=== PATIENT | female | born 1985 | race Caucasian/White ===

== ENCOUNTER 2024-04-25 10:00 | Day surgery (SDC) | payer MEDICAID, SELFPAY ==
--- NOTE | 2024-04-22 06:16 | EKG_ITS ---
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
[2024-04-22 08:41] VITALS: BMI 34.8
[2024-04-22 09:46] LABS: Collection Type, Urine Clean Catch
[2024-04-22 11:49] LABS: Bilirubin,Urine Negative (Negative); Blood,Urine 1+ (Negative); Clarity,Urine Clear (Clear/Hazy); Color,Urine Lt-Yellow (Lt Yel-Yel); Glucose, Urine Negative (Negative); Ketones,Urine Negative (Negative); Leukocyte Esterase,Urine Negative (Negative); Nitrite,Urine Negative (Negative); Protein,Urine Negative (Neg - Trace); RBC,Urine 1 /hpf (0-3); Specific Gravity,Urine 1.018 (1.001-1.035); Squamous Epithelial Cell,Urine < 1 /hpf (0-5); Urobilinogen,Urine Negative mg/dL (0.0-1.0); WBC,Urine < 1 /hpf (0-5)
[2024-04-22 11:50] LABS: Basophils # (Auto) 0.1 Thou/mm3 (0.0-0.2); Basophils % (Auto) 1 % (0-2.5); Eosinophils # (Auto) 0.3 Thou/mm3 (0.0-0.5); Eosinophils % (Auto) 5 % (0-10); Hematocrit 36.1 % (36.0-46.0); Hemoglobin 11.6 g/dL (12.0-16.0); Immature Granulocytes % (Auto) 0 % (0-0); Immature Granulocytes Auto 0.01 Thou/mm3 (0.00-0.00); Lymphocytes # (Auto) 1.9 Thou/mm3 (1.0-4.8); Lymphocytes % (Auto) 35 % (10-50); Mean Corpuscular HGB Conc 32.1 g/dl (31.0-37.0); Mean Corpuscular Hemoglobin 25.4 pg (25.0-35.0); Mean Corpuscular Volume 79 fL (80-100); Monocytes # (Auto) 0.6 Thou/mm3 (0.0-0.8); Monocytes % (Auto) 11 % (0-12); Neutrophils # (Auto) 2.6 Thou/mm3 (1.8-7.7); Neutrophils % (Auto) 48 % (37-80); Nucleated Red Blood Cell % 0 /100 WBC (0); Platelet Count 355 Thou/mm3 (140-440); Red Blood Count 4.56 Miln/mm3 (4.00-5.20); White Blood Count 5.4 Thou/mm3 (3.6-11.0)
[2024-04-22 11:58] LABS: INR 0.9 (0.9-1.3); Partial Thromboplastin Time 28.1 Seconds (22.0-36.0); Prothrombin Time 10.3 Seconds (9.0-12.2)
[2024-04-22 12:13] LABS: Alanine Aminotransferase 14 U/L (10-49); Albumin, Serum 4.8 gm/dL (3.5-5.0); Albumin/Globulin Ratio 2.3 (1.2-2.2); Alkaline Phosphatase 97 U/L (46-116); Anion Gap 3 (7-16); Aspartate Amino Transferase 15 U/L (0-34); BUN/Creatinine Ratio 14 Ratio (12-20); Bilirubin,Total 0.2 mg/dL (0.3-1.2); Blood Urea Nitrogen 10 mg/dL (9-23); Calcium 9.6 mg/dL (8.3-10.6); Calcium (Corrected) 9.6 mg/dL (8.5-10.1); Chloride 107 mMol/L (98-107); Creatinine (Component) 0.7 mg/dL (0.6-1.3); Estimated Creatinine Clearance 108.9 mL/min (>60); Globulin 2.1 gm/dL (2.3-3.5); Glucose 91 mg/dL (74-106); Osmolality,Calculated 274 (275-295); Potassium 4.3 mMol/L (3.4-5.1); Sodium 138 mMol/L (136-145); Total Protein 6.9 gm/dL (5.7-8.2); eGFR > 60 See Note
--- NOTE | 2024-04-22 14:44 | SUR.PREOP ---
Pt notified to come in at 1300 on Thursday.
--- NOTE | 2024-04-22 15:14 | ESHP_ITS ---
HPI Date of Admission April 25, 2024 Chief Complaint Chief Complaint: Large hard mass in the right breast upper outer quadrant highly suspicious of malignancy. HPI This is a 38-year-old white female she was found to have a mass in the right breast and upper outer quadrant that has been growing in size it does produce dimpling this was biopsied with fine-needle aspiration biopsy and showed highly suspicious for malignancy. She is brought to the hospital for excision of the large mass in the right breast upper outer quadrant and rapid frozen section confirmation of malignancy and axillary lymph node dissection. The risk benefits and alternatives were discussed with the patient and informed consent is obtained. Past Medical History Past Medical History NEUROLOGIC: Negative Neurological Disorders, Cerebrovascular Accident, Transient Ischemic Attacks (TIA), Dementia, Alzheimer's Disease, Parkinson's Disease, Brain Tumor, Meningitis, Seizures, Epilepsy, Multiple Sclerosis, Cerebral Palsy, Amyotrophic Lateral Sclerosis (ALS/Jana Gehrig's), Guillain-[place] Syndrome, Spina Bifida, Paralysis, Peripheral Neuropathy, Roca's Palsy, Subdural Hematoma, Migraine, Head Trauma, Spinal Cord Injury or Traumatic Brain Injury CARDIAC: Positive Cardiac Disorders, Hypercholesterolemia and Hypertension; Negative Myocardial Infarction, Cardiac Arrhythmia, Atrial Fibrillation, Angina, Heart Murmur, Coronary Artery Disease, Atherosclerotic Heart Disease, Peripheral Vascular Disease, Aneurysm, Congestive Heart Failure, Congenital Heart Disease, Valvular Heart Disease, Rheumatic Fever, Cardiomyopathy, Edema, Pericarditis, Cellulitis, Deep Vein Thrombosis, Hypotension or Varicose Veins RESPIRATORY: Negative Respiratory Disorders, Chronic Obstructive Pulmonary Disease (COPD), Asthma, Bronchitis, Emphysema, Pneumonia, Pulmonary Fibrosis, Cystic Fibrosis, Tuberculosis, Pulmonary Embolism, Pulmonary Edema or Sleep Apnea GASTROINTESTINAL: Positive Gastrointestinal Disorders, Hemorrhoids and Obesity; Negative Hepatitis, Cirrhosis, Pancreatitis, Celiac Disease, Gall Bladder Disease, Gastrointestinal Bleed, Esophageal Varices, Olivares's Esophagus, Colitis, Ulcerative Colitis, Diverticulitis, Diverticulosis, Ulcer, Colorectal Cancer, Irritable Bowel, Crohn's Disease, Obstructive Bowel, Hiatal Hernia or Gastroesophageal Reflux Disease GENITOURINARY: Negative Genitourinary Disorders, Renal Disease, Kidney Stones, Polycystic Kidney Disease, Neurogenic Bladder, Inguinal Hernia, Dialysis, Prostate Cancer or Benign Prostatic Hyperplasia REPRODUCTIVE: Positive Breast Cancer (Right) and Previous Pregnancies; Negative Endometriosis, Genital Herpes, Gonorrhea, Pelvic Inflammatory Disease, Syphilis, Testicular Cancer or Uterine Prolapse MUSCULOSKELETAL: Positive Musculoskeletal Disorders; Negative Muscular Dystrophy, Myasthenia Gravis, Marfan's Syndrome, Bone Cancer, Arthritis, Rheumatoid Arthritis, Osteoporosis, Degenerative Disk Disease, Gout, Scoliosis, Carpal Tunnel Syndrome, Fibromyalgia, Fractures, Degenerative Joint Disease, Osteomyelitis or Poliovirus ENT: Negative History of ENT Problems, Cataracts, Glaucoma, Blind, Retinal Detac hment, Macular Degeneration, Ear Infection, Deafness, Head Trauma or Eye Prosthesis ENDOCRINE: Negative Endocrine Disorders, Diabetes Mellitus Type 1, Diabetes Mellitus Type 2, Hypoglycemia, [place]'s Syndrome, [place]'s Disease, Hyperthyroidism, Hypothyroidism, Parathyroid Disease, Pituitary Disease, Systemic Lupus Erythematosus, Syndrome of Inappropriate Antidiuretic Hormone (SIADH), Adrenal Disease or Graves' Disease HEMATOLOGIC: Negative Blood Disorders, Anemia, Leukemia, Hemophilia, Thalassemia, Sickle Cell Disease or Clotting Problems PSYCHO/SOCIAL: Positive Depression and Anxiety; Negative Psychiatric Problems, Schizophrenia, Recreational Drug Use, Bipolar Disorder, Behavior Problems, Self-Mutilation, Attention Deficit Disorder, Attention Deficit Hyperactivity Disorder, Depression, Post Traumatic Stress Disorder or Eating Disorder OTHER HISTORY: Positive Hospitalization (uterus infection), Chicken Pox, Cancer and Breast Cancer (Right); Negative Autoimmune Disease, Down Syndrome, Autism, Developmental Delay, Shingles, Falls, Blood Transfusions, Blood Transfusion Reaction, Anesthesia Reactions, Organ Transplant, Chemotherapy, Radiation Therapy, Hyperbaric Therapy, MRSA, VRSA, Vancomycin-Resistant Enterococci, Human Immunodeficiency Virus (HIV), Measles, Mumps, Rubella ([place] Measles), Pertussis, Clostridium Difficile, Cervical Cancer, Colorectal Cancer, Lung Cancer, Ovarian Cancer, Prostate Cancer or Testicular Cancer Family History FAMILY HISTORY: Positive Family Cardiac Disorders, Family Endocrine Disorders, Family Cancer and Family Surgery; Negative Family Psychiatric Problems, Family Respiratory Disorders, Family Gastrointestinal Problems, Family Genitourinary Problems, Family Reproductive Disorders, Family Musculoskeletal Disorders or Family Anesthesia Reaction Surgical History SURGICAL: Positive Tubal Ligation and Section; Negative Cardiac Surgery, Open Heart Surgery, Coronary Artery Bypass Graft, Valve Replacement, Vascular Surgery, Coronary Stent, Cardiac Catheterization, Pacemaker, Angiogram, Auto Implanted Cardiovert Defib, Carotid Endarterectomy, Endocrine Surgery, Thyroidectomy, Ear Surgery, Tympanostomy Tube, Eye Surgery, Nose Surgery, Oral Surgery, Tonsillectomy, Adenoidectomy, Cochlear Implant, Corneal Transplant, Throat Surgery, Abdominal Surgery, Tracheostomy, Gastric Bypass Surgery, Gastrostomy, Bowel Surgery, Nephrectomy, Transurethral Resection, Joint Replacement, Amputation, Open Reduction Internal Fixation, Arthroscopy, Neurologic Surgery, Brain Shunt, Mastectomy, Lumpectomy, Hysterectomy, Vasectomy or Organ Transplant Social History SMOKING STATUS: Never smoker SECOND HAND EXPOSURE: No Travel History EBOLA RISK: No Meds Home Medications and Allergies Home Medications ?Medication ?Instructions ?Recorded ?Confirmed ?Type atorvastatin 10 mg tablet (Lipitor) 10 mg PO QDAY 04/22/24 04/22/24 History dextroamphetamine-amphetamine 20 20 mg PO QDAY 04/22/24 04/22/24 History mg tablet (Adderall) fluoxetine 40 mg capsule (Prozac) 40 mg PO QDAY 04/22/24 04/22/24 History losartan 25 mg tablet 25 mg PO DAILY 04/22/24 04/22/24 History Allergies Allergy/AdvReac Type Severity Reaction Status Date / Time No Known Allergies Allergy Verified 04/22/24 08:38 Exam Constitutional Constitutional: no acute distress Routine HEENT Exam Head: Present normocephalic Eye: Present EOMI and PERRL ENT: Present mucous membranes moist Routine Neck Exam Neck: Present supple and trachea midline Routine Chest/Breast/Axilla Exam Chest wall: Absent tenderness or mass Breast: Present mass (He had a large mass in the right breast upper outer quadrant with the dimpling. There is no retraction of the nipple. There is no drainage from the nipple.) Routine Respiratory Exam Respiratory: Present chest non-tender, lungs clear, normal breath sounds and no resp distress; Absent respiratory distress Routine Cardiovascular Exam Cardiovascular: Present RRR Routine Abdominal Exam Abdominal: Present soft and normoactive bowel sounds Routine Extremities Exam Extremities: Present full ROM Routine Skin Exam Skin: Present intact, dry and warm Routine Neurological Exam Neurological: Present alert, oriented X3 and CN II-XII intact Routine Psychiatric Exam Psychiatric: Present normal affect and normal thought process Results Results: Laboratory Laboratory results: results reviewed Assessment & Plan Problem List (1) Mass of breast, right: Qualifiers: Breast mass location: upper outer quadrant Qualified Code(s): N63.11 - Unspecified lump in the right breast, upper outer quadrant Status: Acute (2) Neoplasm of uncertain behavior of right breast: Status: Acute Plan Ultrasound-guided mapping and then excision of the large mass in the right breast upper outer quadrant and rapid frozen section with confirmation of malignancy she will undergo axillary lymph node dissection. Risk benefits and alternatives were discussed with the patient and informed consent is obtained. Quality Measures Quality Measures none
[2024-04-25] VITALS (11 sets, daily range): BP systolic 133–169; BP diastolic 78–103; PULSE 78–107; RESP 12–21; TEMP 36.1–36.3; O2SAT 95–100; BMI 34.2
--- NOTE | 2024-04-25 17:45 | SUR.PHASEI ---
pt received from OR in recovery bay 4. pt thrashing in bed stating its hot , pt diaphoretic. blankets taken off pt, cooling fan placed on pt. breathing unlabored on 4l nc. v/s stable. pt dressing to right breast cdi, two crystal drains in place. report received from Dr. Collazo and Jayce BARGER.
--- NOTE | 2024-04-25 18:10 | ESOP_ITS ---
Date of Procedure 04/25/24 Pre Op Diagnosis Right breast mass possible cancer Post Op Diagnosis Right breast cancer upper outer quadrant size 18 cm x 15 cm x 12 cm. Procedure Right breast partial mastectomy rapid frozen section and right axillary lymph node dissection. On April 25, 2024 Findings This patient has very large breast and she had a large mass in the right breast upper outer quadrant. This was localized with the ultrasound examination and it was resected. Rapid frozen section was carried out by Dr. Cueto and showed right breast cancer. The axillary examination showed she has a several enlarged lymph glands in the axilla. Procedure Description This patient was interviewed in the preop area and the procedure was discussed with the patient. Risk benefits and alternatives were discussed with the patient in great detail. She is scheduled for a right breast partial mastectomy rapid frozen section and possible lymph node dissection. The breast was marked for side and site. The patient was taken to the operating room and laid supine on the operating table. General anesthesia was administered in the satisfactory manner. Right neck shoulder breast chest wall and abdomen are prepped and draped in usual manner. Ultrasound examination is carried out to identify the margins of the mass to be marked on the surface. The mass is palpable also. Curvilinear transverse incision is made at about 9 o'clock position. This was deepened through the layers of skin and subcutaneous tissue and the mass is identified. The upper and lower flaps are developed at the level of the breast tissue and superficial fascia. Dissection is carried out circumferentially. The inferior flap is also developed in a similar manner. Medially has the tumor extended beyond the nipple areolar region. Laterally it extended beyond the lateral border of the pectoralis major muscle. The entire mass is removed in this manner. Hemostasis is achieved. The mass is oriented anatomically for the pathology examination. Dr. Cueto examined the excised mass and did rapid frozen section pathologic examination and found out that it was invasive breast cancer it could be mixed ductal and lobular cancer. The final pathology result is pending at this time. After this I proceeded to irrigate the excision cavity and examined that hemostasis was achieved. A separate stab incision I placed a 19 [place] round Juan-Horner into the partial mastectomy cavity. I sutured the drain to the skin using 2-0 nylon suture. The subcutaneous tissue was approximated by interrupted 3-0 Vicryl stitches and skin is approximated by calista. With this information I proceeded to do the axillary dissection. I made an incision at the base of the axilla and deepened through the layers of skin and subcutaneous tissue I identified the lateral border of the pectoralis major muscle the space between the pectoralis minor and major did not have any lymph nodes. Dissection was carried out underneath the pectoralis minor muscle. The axillary vein is identified and dissection was kept below the axillary vein. The pectoralis muscles were lifted up and the dissection was carried out in the apex of the axilla and all tissue was removed from the lateral leads the dissection margin was anterior border of the latissimus dorsi. Posteriorly nerve to serratus anterior and nerve to latissimus dorsi were identified and protected. After removal of the lymph node bearing tissue the apical region was marked with a silk tie. Operative field was thoroughly irrigated with saline solution and hemostasis was achieved. After that I proceeded to place a 19 [place] round Juan-Horner drain into the axilla by separate stab incision. This was sutured to the skin using 2-0 nylon stitches. I closed the subcutaneous tissue with 3-0 Vicryl interrupted sutures and skin by calista. Complications none patient tolerated the procedure very well. Anesthesia GETA Drains 19 [place] round Juan-Horner x 2 Implants None. Pathology / specimen Other (Right breast partial mastectomy rapid frozen section and right axillary lymph nodes) Estimated Blood Loss 25 Condition Stable Disposition PACU Surgeon Preston Merino MD Surgical Staff Operation Date: 04/25/24 15:00 Case Staff Anesthesiologist: Victorino Donnelly RN First Assistant: Leticia Gan RN police aide Yulisa surgical device sales representative
[2024-04-25] MEDS: KETOROLAC INJ 30 MG/ML VIAL IVP (18:56)
--- NOTE | 2024-04-25 19:06 | SUR.PHASEII ---
pt able to tolerate oral fluids without difficulty swallowing or nausea/vomiting.
--- NOTE | 2024-04-25 19:55 | SUR.PHASEII ---
pt awake and alert, breathing unlabored on room air. v/s stable. pt dressing to right breast cdi, abd binder and crystal drains in place. pt able to ambulate to wheelchair with steady gait. d/c instructions given with Julio in room, all questions answered. pt d/c via wheelchair with all belongings.
--- NOTE | 2024-04-28 12:59 | ESPR_ITS ---
Documentation for date of: 04/28/24 POST ANESTHESIA NOTE: Patient had GETA for R breast surgery started by my colleague and then taken o binh and completed by me on 04/25/24. I just called and spoke with her on the phone and she denied any problems from anesthesia and said Everything is good. Martin Collazo MD Anesthesia Progress Note Progress Note Most recent Vital Signs: Last Vital Signs Temp 97.4 F 04/25/24 19:30 Pulse 80 04/25/24 19:30 Resp 18 04/25/24 19:30 BP 156/101 H 04/25/24 19:30 Pulse Ox 97 04/25/24 19:30 O2 Flow Rate 2 04/25/24 18:30
== END 2024-04-25 19:55 | disposition home or self-care (01) ==
PROVIDERS: PCP Internal Medicine; Referring Provider Specialist; Visit Provider Specialist
PROC: (CPT 19302; principal; 2024-04-25 15:00)
DX: C50.411 Malignant neoplasm of upper-outer quadrant of right female breast (principal); E03.9 Hypothyroidism, unspecified; E78.00 Pure hypercholesterolemia, unspecified; E66.9 Obesity, unspecified; Z01.810 Encounter for preprocedural cardiovascular examination; C77.3 Secondary and unspecified malignant neoplasm of axilla and upper limb lymph nodes; I10 Essential (primary) hypertension; Z87.19 Personal history of other diseases of the digestive system; Z68.34 Body mass index [BMI] 34.0-34.9, adult
CPT/HCPCS: 19302; 36415; 80053; 81001; 85025; 85610; 85730; 93005; A4217; A4649; J0131; J0694; J1100; J1885; J2250; J2405; J2704; J3010; J3490

== ENCOUNTER 2024-05-05 08:25 | Day surgery (SDC) | payer MEDICAID, SELFPAY ==
--- NOTE | 2024-05-04 14:07 | PD.SURHP ---
HPI Date of Admission May 05, 2024 Chief Complaint Chief Complaint: Lobular carcinoma of the right breast HPI This patient had a resection of the right breast and very large tumor on April 25, 2024. Rapid frozen section was done at the time it was not clear about the margin. On the final examination there is a positive margin breach on the inferior side and posterior side of the excision. Therefore the patient is brought back to the operating room to resect the inferior and posterior aspect of the margin. Rapid frozen section will be obtained to see if there is any involvement in the new margin. Risk benefits and alternatives were discussed with the patient and informed consent is obtained. Past Medical History Past Medical History NEUROLOGIC: Negative Neurological Disorders, Cerebrovascular Accident, Transient Ischemic Attacks (TIA), Dementia, Alzheimer's Disease, Parkinson's Disease, Brain Tumor, Meningitis, Seizures, Epilepsy, Multiple Sclerosis, Cerebral Palsy, Amyotrophic Lateral Sclerosis (ALS/Jana Gehrig's), Guillain-[place] Syndrome, Spina Bifida, Paralysis, Peripheral Neuropathy, Roca's Palsy, Subdural Hematoma, Migraine, Head Trauma, Spinal Cord Injury or Traumatic Brain Injury CARDIAC: Positive Cardiac Disorders, Hypercholesterolemia and Hypertension; Negative Myocardial Infarction, Cardiac Arrhythmia, Atrial Fibrillation, Angina, Heart Murmur, Coronary Artery Disease, Atherosclerotic Heart Disease, Peripheral Vascular Disease, Aneurysm, Congestive Heart Failure, Congenital Heart Disease, Valvular Heart Disease, Rheumatic Fever, Cardiomyopathy, Edema, Pericarditis, Cellulitis, Deep Vein Thrombosis, Hypotension or Varicose Veins RESPIRATORY: Negative Chronic Obstructive Pulmonary Disease (COPD), Asthma, Bronchitis, Emphysema, Pneumonia, Pulmonary Fibrosis, Cystic Fibrosis, Tuberculosis, Pulmonary Embolism, Pulmonary Edema or Sleep Apnea GASTROINTESTINAL: Positive Gastrointestinal Disorders, Hemorrhoids and Obesity; Negative Hepatitis, Cirrhosis, Pancreatitis, Celiac Disease, Gall Bladder Disease, Gastrointestinal Bleed, Esophageal Varices, Olivares's Esophagus, Colitis, Ulcerative Colitis, Diverticulitis, Diverticulosis, Ulcer, Colorectal Cancer, Irritable Bowel, Crohn's Disease, Obstructive Bowel, Hiatal Hernia or Gastroesophageal Reflux Disease GENITOURINARY: Negative Genitourinary Disorders, Renal Disease, Kidney Stones, Polycystic Kidney Disease, Neurogenic Bladder, Inguinal Hernia, Dialysis, Prostate Cancer or Benign Prostatic Hyperplasia REPRODUCTIVE: Positive Breast Cancer (Right) and Previous Pregnancies; Negative Endometriosis, Genital Herpes, Gonorrhea, Pelvic Inflammatory Disease, Syphilis, Testicular Cancer or Uterine Prolapse MUSCULOSKELETAL: Positive Musculoskeletal Disorders; Negative Muscular Dystrophy, Myasthenia Gravis, Marfan's Syndrome, Bone Cancer, Arthritis, Rheumatoid Arthritis, Osteoporosis, Degenerative Disk Disease, Gout, Scoliosis, Carpal Tunnel Syndrome, Fibromyalgia, Fractures, Degenerative Joint Disease, Osteomyelitis or Poliovirus ENT: Negative Cataracts, Glaucoma, Blind, Retinal Detachment, Macular Degeneration, Ear Infection, Deafness, Head Trauma or Eye Prosthesis ENDOCRINE: Negative Endocrine Disorders, Diabetes Mellitus Type 1, Diabetes Mellitus Type 2, Hypoglycemia, [place]'s Syndrome, [place]'s Disease, Hyperthyroidism, Hypothyroidism, Parathyroid Disease, Pituitary Disease, Systemic Lupus Erythematosus, Syndrome of Inappropriate Antidiuretic Hormone (SIADH), Adrenal Disease or Graves' Disease HEMATOLOGIC: Negative Blood Disorders, Anemia, Leukemia, Hemophilia, Thalassemia, Sickle Cell Disease or Clotting Problems PSYCHO/SOCIAL: Positive Depression and Anxiety; Negative Psychiatric Problems, Schizophrenia, Recreational Drug Use, Bipolar Disorder, Behavior Problems, Self-Mutilation, Attention Deficit Disorder, Attention Deficit Hyperactivity Disorder, Depression, Post Traumatic Stress Disorder or Eating Disorder OTHER HISTORY: Positive Hospitalization (uterus infection), Chicken Pox, Cancer and Breast Cancer (Right); Negative Autoimmune Disease, Down Syndrome, Autism, Developmental Delay, Shingles, Falls, Blood Transfusions, Blood Transfusion Reaction, Anesthesia Reactions, Organ Transplant, Chemotherapy, Radiation Therapy, Hyperbaric Therapy, MRSA, VRSA, Vancomycin-Resistant Enterococci, Human Immunodeficiency Virus (HIV), Measles, Mumps, Rubella ([place] Citizen Measles), Pertussis, Clostridium Difficile, Cervical Cancer, Colorectal Cancer, Lung Cancer, Ovarian Cancer, Prostate Cancer or Testicular Cancer Family History FAMILY HISTORY: Positive Family Cardiac Disorders, Family Cancer and Family Surgery; Negative Family Psychiatric Problems, Family Respiratory Disorders, Family Gastrointestinal Problems or Family Anesthesia Reaction Surgical History SURGICAL: Positive Tubal Ligation and Section; Negative Cardiac Surgery, Open Heart Surgery, Coronary Artery Bypass Graft, Valve Replacement, Vascular Surgery, Coronary Stent, Cardiac Catheterization, Pacemaker, Angiogram, Auto Implanted Cardiovert Defib, Carotid Endarterectomy, Endocrine Surgery, Thyroidectomy, Ear Surgery, Tympanostomy Tube, Eye Surgery, Nose Surgery, Oral Surgery, Tonsillectomy, Adenoidectomy, Cochlear Implant, Corneal Transplant, Throat Surgery, Abdominal Surgery, Tracheostomy, Gastric Bypass Surgery, Gastrostomy, Bowel Surgery, Nephrectomy, Transurethral Resection, Joint Replacement, Amputation, Open Reduction Internal Fixation, Arthroscopy, Neurologic Surgery, Brain Shunt, Mastectomy, Lumpectomy, Hysterectomy, Vasectomy or Organ Transplant Social History SMOKING STATUS: Never smoker SECOND HAND EXPOSURE: No Meds Home Medications and Allergies Home Medications ?Medication ?Instructions ?Recorded ?Confirmed ?Type atorvastatin 10 mg tablet (Lipitor) 10 mg PO QDAY 04/22/24 04/22/24 History dextroamphetamine-amphetamine 20 20 mg PO QDAY 04/22/24 04/22/24 History mg tablet (Adderall) fluoxetine 40 mg capsule (Prozac) 40 mg PO QDAY 04/22/24 04/22/24 History losartan 25 mg tablet 25 mg PO DAILY 04/22/24 04/22/24 History Allergies Allergy/AdvReac Type Severity Reaction Status Date / Time No Known Allergies Allergy Verified 04/22/24 08:38 Exam Constitutional Constitutional: no acute distress Routine HEENT Exam Head: Present normocephalic Eye: Present EOMI and PERRL ENT: Present mucous membranes moist Routine Neck Exam Neck: Present supple and trachea midline Routine Chest/Breast/Axilla Exam Chest wall: Absent tenderness or mass Breast: Present mass (This patient had a large mass excised from the right breast there is a healing incision scar without infection she also has an incision in the axilla for axillary lymph node removal.) Routine Respiratory Exam Respiratory: Present chest non-tender, lungs clear, normal breath sounds and no resp distress; Absent respiratory distress Routine Cardiovascular Exam Cardiovascular: Present RRR Routine Abdominal Exam Abdominal: Present soft and normoactive bowel sounds Routine Extremities Exam Extremities: Present full ROM Routine Skin Exam Skin: Present intact, dry and warm Routine Neurological Exam Neurological: Present alert, oriented X3 and CN II-XII intact Routine Psychiatric Exam Psychiatric: Present normal affect and normal thought process Results Results: Laboratory Laboratory Narrative: This patient had excision of the large mass in the right breast on April 25, 2024 this turned out to be invasive lobular carcinoma of the breast. She also had positive metastatic lymph glands under the arm. Assessment & Plan Problem List (1) Lobular carcinoma of right breast: Status: Acute (2) Regional lymph node metastasis present: Status: Acute Plan Reresection partial mastectomy to clear the margin on the inferior side as well as on the posterior side. Risk benefits and alternatives were discussed with the patient and informed consent is obtained.2 Quality Measures Quality Measures VTE prophylaxis
[2024-05-05] VITALS (7 sets, daily range): BP systolic 117–156; BP diastolic 59–102; PULSE 81–112; RESP 13–19; TEMP 36.2–36.5; O2SAT 98–100; BMI 33.6; BMI 33.8
--- NOTE | 2024-05-05 08:24 | SUR.PREOP ---
Pt has partial mastectomy right breast on Apr, incision with steri strips under her right axilla, Dr Merino and Dr Vale gay to use same labs from Apr 22
[2024-05-05] MEDS: RINGERS LACTATED 1000 ML 1,000 ML 60 ML IV (09:16)
--- NOTE | 2024-05-05 14:00 | SUR.PHASEI ---
pt received from OR in recovery bay 4. pt obtunded, breathing unlabored on room air. v/s stable. pt dressing to right breast cdi. crystal drain in place. report received from Dr. Shafer and Jayce BARGER.
--- NOTE | 2024-05-05 14:22 | ESOP_ITS ---
Date of Procedure 05/05/24 Pre Op Diagnosis Microscopic residual cancer on the margin of resection right breast status post partial mastectomy for lobular carcinoma. Post Op Diagnosis Same. Procedure Partial mastectomy right breast for residual cancer right breast. With rapid frozen section margin control. On May 05, 2024 Findings There is an excision cavity in the right breast there is no palpable cancer from the inside of the cavity. The inferior margin and posterior margin areas were all removed including the superior and medial and lateral margin the margin cavity was painted with methylene blue from the inside. This was oriented for the pathologist and given it to the pathologist and I explained to the pathologist which part of the tissue was questionably involved. Then this was examined and rapid frozen section was carried out and showed there was no residual cancer. The final margin was clear. Procedure Description The patient is interviewed in the preop area and site and side were marked. The procedure was discussed in great detail with the patient and the family member. All questions were answered and informed consent is obtained. Patient was then taken to the operating room and patient is positioned supine on the operating table. The general anesthesia was administered in a satisfactory manner. Patient is prepped and draped in usual manner. I opened the old incision and examined the excision cavity there is no palpable mass from inside the excision cavity. There was small amount of serosanguineous fluid and that was aspirated. Then I took methylene blue and painted the excision cavity surface from the inside. I allowed that the methylene blue to set in on the tissue is blue-color. After that I excised the entire wall of the previous excision cavity without a break. After removal of the entire excision cavity I oriented that for the pathologist as what was inferior margin what was posterior margin what was medial margin and what was lateral margin. I took the specimen myself to the pathologist to explain the localization. This was examined by the pathologist and showed that there was no close tumor and the final margin was clear. After this I proceeded back to the operating room and again scrubbed and the cavity was irrigated with saline solution and hemostasis was again achieved. This is a large cavity. By separate stab incision a left 10 Zimbabwean flat Juan-Horner into the excision cavity and sutured to the skin using 2-0 nylon interrupted suture. The breast tissue and subcutaneous tissues approximated by 4-0 Vicryl interrupted stitches. Skin is approximated by calista. Patient tolerated the procedure very well complications none. 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
--- NOTE | 2024-05-05 14:30 | SUR.PHASEI ---
pt able to tolerate oral fluids without difficulty swallowing or nausea/vomiting.
--- NOTE | 2024-05-05 15:00 | SUR.PHASEII ---
pt awake and alert, breathing unlabored on room air. v/s stable. pt dressing to right breast cdi, abd binder in place, crystal drain in place. pt able to ambulate to wheelchair with steady gait. d/c instructions given with Julio in room, all questions answered. pt d/c via wheelchair with all belongings.
== END 2024-05-05 15:00 | disposition home or self-care (01) ==
PROVIDERS: PCP Internal Medicine; Referring Provider Specialist; Visit Provider Specialist
PROC: (CPT 19302; principal; 2024-05-05 12:00)
DX: D24.1 Benign neoplasm of right breast (principal); E66.9 Obesity, unspecified; E78.00 Pure hypercholesterolemia, unspecified
CPT/HCPCS: 19302; 80053; 81001; 85025; 85610; 85730; A4217; A4649; J0461; J0690; J1100; J1885; J2250; J2371; J2405; J2704; J3010; J7120; Q9968

== ENCOUNTER → 2024-05-09 | Outpatient (CLI) | payer MEDICAID, SELFPAY ==
--- NOTE | 2024-05-09 10:37 | XR_ITS ---
Examination: PA lateral chest 2 views TECHNIQUE: Upright PA lateral chest 2 views Exam date and time: May 09, 2024 1052 hours INDICATIONS: Chronic coughing FINDINGS: Linear opacity right breast with calista Right axillary surgical clips Normal heart size No pneumonia or pulmonary edema IMPRESSION: No pneumonia or pulmonary edema
== END | disposition home or self-care (01) ==
PROVIDERS: PCP Internal Medicine; Referring Provider Internal Medicine; Visit Provider Internal Medicine
DX: R05.3 Chronic cough (principal)
CPT/HCPCS: 71046

== ENCOUNTER 2024-06-01 08:58 | Outpatient (RCR) | payer MEDICAID, SELFPAY ==
--- NOTE | 2024-06-01 10:29 | CTCCONSULT_ITS ---
Patient: NGHIA SUTHERLAND : 1985 MR#: [id number] Page 2 of 2 CONSULTATION NOTE DATE OF CONSULTATION: 06/01/2024 NAME: NGHIA SUTHERLAND ACCOUNT: [id number] : 1985 AGE: 38 REFERRING PHYSICIAN: Viktor Dutton MD PRIMARY PHYSICIAN: Lyndon Vidal MD REASON FOR VISIT: New diagnosis of breast cancer ONCOLOGY HISTORY: DIAGNOSIS: Malignant neoplasm of upper-inner quadrant of right female breast [ICD10] C50.211 DATE OF DIAGNOSIS: 04/13/2024 STAGE/TNM: IIIA T3 N1 M0 TREATMENT HISTORY: Care?Plan Start?Date Cycle Day Intent AC?4?cy?DD?Taxol?wkly?12?wks 06/01/2024 1 7 Curative?(adjuvant) HISTORY OF PRESENT ILLNESS: 38-year-old female who is here to establish care. Patient was diagnosed with right breast cancer aft er she palpated about golf size mass in July. Patient thinks that mass grew very rapidly. She also noticed skin changes and orange peel like skin. Patient was seen by surgeon who did lumpectomy. Re section of the margins was attempted again as initial margins were positive. Repeat surgery for eliud ins was found to be negative Patient otherwise healed well and here to discuss further level of care. 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 AdderalL - 20 mg 1 tab In the morning 2. fexofenadine - 180 mg 1 tab Daily 3. fluoxetine - 40 mg 1 Capsule Daily 4. Lipitor - 10 mg 0.5 tab Daily 5. losartan - 25 mg 1 tab Daily Medications Last Reconciled by Daisy Sebastian MD on 06/01/2024 ALLERGIES: No Known Allergies REVIEW OF SYSTEMS: A complete 14-point review of systems was performed and is negative except as noted in interval histo ry. PHYSICAL EXAMINATION: VITAL SIGNS: Temperature?99, B/P?150/101, Height?62?inches, Oxygen?Saturation?97% Weight?190?lbs PAIN: 0 - No pain ECOG Performance Status: 0 - Asymptomatic and fully active GENERAL APPEARANCE: Appears well, in no apparent distress, appropriately interactive. HEENT: Normocephalic, no temporal wasting, normal conjunctiva, no scleral icterus, normal hearing, li ps without lesions, neck normal range of motion. CARDIOVASCULAR: Not assessed. PULMONARY: Normal respiratory effort, no respiratory distress or use of accessory muscles, speaking i n full sentences, no tachypnea. EXTREMITIES: No pedal edema or cyanosis. SKIN: Normal skin appearance. NEUROLOGIC: Alert and oriented x4. PSHYCHIATRIC: Appropriate affect, mood normal, behavior normal, intact thought and speech. LABORATORY DATA: I have personally reviewed and interpreted each of Ms. 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 but I cannot confir m now Discussed starting chemotherapy with AC plus Taxol Patient will also need NT endocrine therapy with abemaciclib Will get MUGA scan Port catheter Discussed effects and benefit of chemotherapy along with side effects and patient verbally consented for chemotherapy To confirm staging will need PET CT scan and brain MRI to make sure patient do not have metastatic di sease PET CT scan to evaluate for any metastatic disease MRI brain to evaluate brain mets Port catheter MUGA scan CBC CMP RETURN TO CLINIC: Before the first cycle of chemotherapy in 4 to 6 weeks BILLING AND COMPLIANCE: I reviewed external records from providers outside my specialty as summarized above. I spent a total of 50 minutes on this patient?s care on the day of their visit excluding time spent related to any bi lled procedures. This time includes time spent with the patient as well as time spent documenting in the medical record, reviewing patients records and tests, obtaining history, placing orders, communi cating with other healthcare professionals, counseling the patient, family or caregiver, and/or care coordination for the diagnoses above. Electronically Signed by: Lyndon Vidal MD T: 10:27 AM CC: PCP: Lyndon Vidal Referring: Viktor Dutton This document was completed utilizing speech recognition software. Grammatical errors, random word in sertions, pronoun errors, and incomplete sentences are an occasional consequence of this system due t o software limitations, ambient noise, and hardware issues. Any formal questions or concerns about th e content, text or information contained within the body of this dictation should be directly address ed to the provider for clarification.
== END 2024-06-10 23:59 | disposition home or self-care (01) ==
LOC: SCTC 08:58
PROVIDERS: PCP Internal Medicine; Referring Provider Psychiatry & Neurology Neurology; Visit Provider Internal Medicine Hematology & Oncology
DX: C50.411 Malignant neoplasm of upper-outer quadrant of right female breast (principal); Z17.0 Estrogen receptor positive status [ER+]; Z17.21 Progesterone receptor positive status; Z17.32 Human epidermal growth factor receptor 2 negative status; Z90.11 Acquired absence of right breast and nipple
CPT/HCPCS: 99213; G0463

== ENCOUNTER → 2024-06-09 | Outpatient (CLI) | payer MEDICAID, SELFPAY ==
--- NOTE | 2024-06-09 10:15 | XR_ITS ---
EXAMINATION: PET/CT FUSION SKULL TO THIGH EXAM DATE AND TIME: June 09, 2024 1047 hours INDICATIONS: Diagnosis breast cancer, staging prior to treatment CTDI:vol (mGy) 6.24 DLP: (mGycm) 569.84 PROCEDURE: 15.14 mCi FDG was administered intravenously To allow for distribution and uptake of radiotracer, the patient was allowed to rest quietly in a shielded room. Imaging was performed on an integrated 16-slice PET/CT scanner, with scanning from the skull base to the mid thigh. Serum blood glucose at the time of the injection was measured 91 mg/dL. CT scanning was performed without oral or intravenous contrast material. FINDINGS: Head and Neck: There is no tati hypermetabolism in the neck. The visualized portions of the brain are normal in appearance on CT. Chest: Weakly hypermetabolic activity in the right axilla about surgical clips which is probably postsurgical Probable seroma in the right lateral breast 6 cm image 93 Hypermetabolic skin right breast Abdomen and Pelvis: There is no tati hypermetabolism in retroperitoneal or pelvic chains. The spleen is normal in size and FDG avidity. Musculoskeletal: Marrow uptake is within normal range. IMPRESSION: No findings of metastatic disease
== END | disposition home or self-care (01) ==
LOC: CDIM 09:58
PROVIDERS: PCP Internal Medicine; Referring Provider Internal Medicine Hematology & Oncology; Visit Provider Internal Medicine Hematology & Oncology
DX: C50.211 Malignant neoplasm of upper-inner quadrant of right female breast (principal)
CPT/HCPCS: 78815; A9552

== ENCOUNTER → 2024-06-11 | Outpatient (CLI) | payer MEDICAID, SELFPAY ==
--- NOTE | 2024-06-11 07:45 | XR_ITS ---
Examination: MRI of brain without intravenous contrast. MRI brain with intravenous contrast. Date and time of exam:June 11, 2024 2018 hrs. Indications: Diagnosis malignant neoplasm upper inner quadrant right female breast, diagnosis April 2024, staging Technique: Multiple axial and sagittal images of the brain to been obtained. Siemens high-resolution 1.52 Rupa short bore scanner utilized. Sagittal sections, T1 weighted images, TR 500, TE 14, are performed. Axial sections proton-density and T2-weighted images have been obtained. Inversion recovery axial images, TR 9260, TE 111, TR 2500. Diffusion weighted images, axial sections, TR 4800, TE 128, B value 1000. Axial sections, ADC map, TR 4800, TE 128. Axial and coronal images were also obtained post 17 cc gadolinium administered intravenously. Findings:: Enlargement of the sella turcica is not present. The optic chiasm and infundibular stalk are not remarkable. There is no localized enlargement of the medulla or michael. Fourth ventricle and cerebellar tonsils appear normal in position. No subacute area of hemorrhage density is seen. Fourth ventricle is midline. Mass in the cerebellopontine angle region is not evident. 7th and 8th nerve complexes exhibit symmetry Globes are symmetrical Orbital musculature including medial lateral rectus muscles do not exhibit abnormality Increased white matter signal is not seen Effacement of the cortical sulcal markings is not identified. Mass effect upon the ventricular system is not identified. Diffusion-weighted images demonstrate no focus of restricted diffusion Contrast images demonstrate no abnormal enhancement Impression: Negative for acute hemorrhage mass effect or midline shift No acute infarct No abnormal enhancing cerebellar or cerebral lesions
== END | disposition home or self-care (01) ==
PROVIDERS: PCP Internal Medicine; Referring Provider Internal Medicine Hematology & Oncology; Visit Provider Internal Medicine Hematology & Oncology
DX: C50.211 Malignant neoplasm of upper-inner quadrant of right female breast (principal)
CPT/HCPCS: 70553; A9579

== ENCOUNTER 2024-07-06 11:53 | Outpatient (RCR) | payer MEDICAID, SELFPAY | END 2024-07-08 23:59 | disposition home or self-care (01) | LOC: SCTC 11:53 | PROVIDERS: PCP Internal Medicine; Referring Provider Internal Medicine Hematology & Oncology; Visit Provider Internal Medicine Hematology & Oncology | DX: C50.411 Malignant neoplasm of upper-outer quadrant of right female breast (principal); Z17.0 Estrogen receptor positive status [ER+]; Z17.21 Progesterone receptor positive status; Z17.32 Human epidermal growth factor receptor 2 negative status ==

== ENCOUNTER 2024-08-04 10:01 | Outpatient (RCR) | payer MEDICAID, SELFPAY ==
--- NOTE | 2024-08-04 12:17 | CTCFLWUP_ITS ---
Patient: NGHIA SUTHERLAND : 1985 Page 2 of 4 FOLLOW UP NOTE DATE OF SERVICE: 08/04/2024 NAME: NGHIA SUTHERLAND ACCOUNT: [id number] : 1985 AGE: 38 INTERVAL HISTORY: 08/04/2024 patient is here to discuss her further care. Patient says that she has decided not to get chemotherapy she believes that she is cancer free as recent PET scan showed her to be cancer free patient does not believe that she need chemotherapy. She wants to try other hormone blocking therapy or targeted therapy. She is sad she could not get a second opinion at [facility] or [facility] as medical insurance was not excepted by them. Her is accompanying her. He says that they have started eating healthier and reducing the stress. They have decided not to put any toxins in the body. Patient's last menstruation was about a month ago. ONCOLOGY HISTORY: DIAGNOSIS: Malignant neoplasm of upper-inner quadrant of right female breast [ICD10] C50.211 DATE OF DIAGNOSIS: 04/13/2024 STAGE/TNM: IIIA T3 N1 M0 TREATMENT HISTORY: Care?Plan Start?Date Cycle Day Intent AC?4?cy?DD?Taxol?wkly?12?wks 06/01/2024 1 7 Curative?(adjuvant) HISTORY OF PRESENT ILLNESS: 38-year-old female who is here to establish care. Patient was diagnosed with right breast cancer after she palpated about golf size mass in July. Patient thinks that mass grew very rapidly. She also noticed skin changes and orange peel like skin. Patient was seen by surgeon who did lumpectomy. Resection of the margins was attempted again as initial margins were positive. Repeat surgery for margins was found to be negative Patient otherwise healed well and here to discuss further level of care. 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 AdderalL - 20 mg 1 tab In the morning 2. fexofenadine - 180 mg 1 tab Daily 3. fluoxetine - 40 mg 1 Capsule Daily 4. Lipitor - 10 mg 0.5 tab Daily 5. losartan - 25 mg 1 tab Daily Medications Last Reconciled by Angie Nixon MA on 08/04/2024 ALLERGIES: No Known Allergies REVIEW OF SYSTEMS: A complete 14-point review of systems was performed and is negative except as noted in interval history. PHYSICAL EXAMINATION: VITAL SIGNS: PAIN: 0 - No pain ECOG Performance Status: 0 - Asymptomatic and fully active GENERAL APPEARANCE: Appears well, in no apparent distress, appropriately interactive. HEENT: Normocephalic, no temporal wasting, normal conjunctiva, no scleral icterus, normal hearing, lips without lesions, neck normal range of motion. CARDIOVASCULAR: Not assessed. PULMONARY: Normal respiratory effort, no respiratory distress or use of accessory muscles, speaking in full sentences, no tachypnea. EXTREMITIES: No pedal edema or cyanosis. SKIN: Normal skin appearance. NEUROLOGIC: Alert and oriented x4. PSHYCHIATRIC: Appropriate affect, mood normal, behavior normal, intact thought and speech. LABORATORY DATA: I have personally reviewed and interpreted each of Ms. Sutherland?s relevant lab tests, abnormal findings are below: Date ASSESSMENT/PLAN: Stage III ER/SD positive breast cancer HER2 negative Patient had long discussion at the last visit and was planned for treatment with AC plus Taxol Patient have decided not to do chemotherapy Again lots of counseling done. Patient is young and recurrence risk is high Patient absolutely do not want chemotherapy Patient willing for NT endocrine therapy Will start tamoxifen Ordered Lupron to induce menopause Once patient is in complete menopause will switch to anastrozole Will order abemaciclib as an adjuvant therapy Discussed PET CT scan is not is negative MRI brain negative Tamoxifen 20 mg prescription sent. Discussed side effects of tamoxifen. She is not a candidate for anastrozole as she is premenopausal. Side effects discussed with her Patient wants to get oophorectomy bilaterally so she does not have to get Lupron She also wants to get hysterectomy as have heavy menstruation . And have completed a family Will place a referral to gynecology Will do Vivian for monitoring for recurrence ORDERS: Order # Description [id number] Comprehensive Metabolic Panel - 12 + CBC with Auto Diff [id number] CA 15-3 RETURN TO CLINIC: I will see her back in the clinic in 2 months. BILLING AND COMPLIANCE: I reviewed external records from providers outside my specialty as summarized above. I spent a total of 50 minutes on this patient?s care on the day of their visit excluding time spent related to any billed procedures. This time includes time spent with the patient as well as time spent documenting in the medical record, reviewing patients records and tests, obtaining history, placing orders, communicating with other healthcare professionals, counseling the patient, family or caregiver, and/or care coordination for the diagnoses above. Electronically Signed by: Lyndon Vidal MD T: 12:15 PM CC: PCP: Lyndon Vidal Referring: Lyndon Vidal This document was completed utilizing speech recognition software. Grammatical errors, random word insertions, pronoun errors, and incomplete sentences are an occasional consequence of this system due to software limitations, ambient noise, and hardware issues. Any formal questions or concerns about the content, text or information contained within the body of this dictation should be directly addressed to the provider for clarification.
--- NOTE | 2024-08-04 13:20 | CTCFLWUP_ITS ---
Patient: NGHIA PELLETIER : 1985 Page 2 of 2 FOLLOW UP NOTE DATE OF SERVICE: 08/04/2024 NAME: NGHIA PELLETIER ACCOUNT: [id number] : 1985 AGE: 38 INTERVAL HISTORY: ONCOLOGY HISTORY: DIAGNOSIS: Malignant neoplasm of upper-inner quadrant of right female breast [ICD10] C50.211 DATE OF DIAGNOSIS: 04/13/2024 STAGE/TNM: IIIA T3 N1 M0 TREATMENT HISTORY: Care?Plan Start?Date Cycle Day Intent AC?4?cy?DD?Taxol?wkly?12?wks 06/01/2024 1 7 Curative?(adjuvant) HISTORY OF PRESENT ILLNESS: 38-year-old female who is here to establish care. Patient was diagnosed with right breast cancer after she palpated about golf size mass in July. Patient thinks that mass grew very rapidly. She also noticed skin changes and orange peel like skin. Patient was seen by surgeon who did lumpectomy. Resection of the margins was attempted again as initial margins were positive. 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 AdderalL - 20 mg 1 tab In the morning 2. fexofenadine - 180 mg 1 tab Daily 3. fluoxetine - 40 mg 1 Capsule Daily 4. Lipitor - 10 mg 0.5 tab Daily 5. losartan - 25 mg 1 tab Daily 6. tamoxifen - 20 mg 1 tab Daily Medications Last Reconciled by Angie Nixon MA on 08/04/2024 ALLERGIES: No Known Allergies REVIEW OF SYSTEMS: A complete 14-point review of systems was performed and is negative except as noted in interval history. PHYSICAL EXAMINATION: VITAL SIGNS: PAIN: 0 - No pain ECOG Performance Status: 0 - Asymptomatic and fully active GENERAL APPEARANCE: Appears well, in no apparent distress, appropriately interactive. HEENT: Normocephalic, no temporal wasting, normal conjunctiva, no scleral icterus, normal hearing, lips without lesions, neck normal range of motion. CARDIOVASCULAR: Not assessed. PULMONARY: Normal respiratory effort, no respiratory distress or use of accessory muscles, speaking in full sentences, no tachypnea. EXTREMITIES: No pedal edema or cyanosis. SKIN: Normal skin appearance. NEUROLOGIC: Alert and oriented x4. PSHYCHIATRIC: Appropriate affect, mood normal, behavior normal, intact thought and speech. LABORATORY DATA: I have personally reviewed and interpreted each of the patient?s relevant lab tests, abnormal findings are below: Date ASSESSMENT/PLAN: Stage III ER/HI positive breast cancer HER2 negative I saw patient's breast cancer pictures and we have had inflammatory breast cancer but I cannot confirm now Discussed starting chemotherapy with AC plus Taxol Patient will also need NT endocrine therapy with abemaciclib Will get MUGA scan Port catheter Discussed effects and benefit of chemotherapy along with side effects and patient verbally consented for chemotherapy To confirm staging will need PET CT scan and brain MRI to make sure patient do not have metastatic disease PET CT scan to evaluate for any metastatic disease MRI brain to evaluate brain mets Port catheter MUGA scan CBC CMP ORDERS: Order # Description [id number] Comprehensive Metabolic Panel - 12 + CBC with Auto Diff [id number] CA 15-3 RETURN TO CLINIC: BILLING AND COMPLIANCE: I reviewed external records from providers outside my specialty as summarized above. I spent a total of 50 minutes on this patient?s care on the day of their visit excluding time spent related to any billed procedures. This time includes time spent with the patient as well as time spent documenting in the medical record, reviewing patients records and tests, obtaining history, placing orders, communicating with other healthcare professionals, counseling the patient, family or caregiver, and/or care coordination for the diagnoses above. Electronically Signed by: Lyndon Vidal MD T: 1:18 PM CC: PCP: Lyndon Vidal Referring: Lyndon Vidal This document was completed utilizing speech recognition software. Grammatical errors, random word insertions, pronoun errors, and incomplete sentences are an occasional consequence of this system due to software limitations, ambient noise, and hardware issues. Any formal questions or concerns about the content, text or information contained within the body of this dictation should be directly addressed to the provider for clarification.
== END 2024-08-08 23:59 | disposition home or self-care (01) ==
LOC: SCTC 10:01
PROVIDERS: PCP Internal Medicine; Referring Provider Internal Medicine Hematology & Oncology; Visit Provider Internal Medicine Hematology & Oncology
DX: C50.811 Malignant neoplasm of overlapping sites of right female breast (principal); Z17.0 Estrogen receptor positive status [ER+]; Z17.21 Progesterone receptor positive status; Z17.32 Human epidermal growth factor receptor 2 negative status
CPT/HCPCS: 99212; G0463

== ENCOUNTER → 2024-08-30 | Outpatient (CLI) | payer MEDICAID, SELFPAY ==
--- NOTE | 2024-08-30 14:30 | ECHO_ITS ---
Transthoracic Echo Report Ht (in): 62 Wt (lb): 185 Exam Location: Echo Lab Status: Preadmit Gun Tester: URSULA Wyatt^^^^ Indications: Procedure Performed: BP: / HR: MEASUREMENTS (Male / Female) Normal Values 2D ECHO LV Diastolic Diameter PLAX 3.9 cm 4.2 - 5.9 / 3.9 - 5.3 cm LV Systolic Diameter PLAX 2.5 cm IVS Diastolic Thickness 0.6 cm 0.6 - 1.0 / 0.6 - 0.9 cm LVPW Diastolic Thickness 0.8 cm 0.6 - 1.0 / 0.6 - 0.9 cm LV Relative Wall Thickness 0.4 LVOT Diameter 1.6 cm Aortic Root Diameter 2.7 cm LA Systolic Diameter LX 3.2 cm 3.0 - 4.0 / 2.7 - 3.8 cm LA Volume Index 31.2 cm?/m? 16 - 28 cm?/m? Ascending Aorta Diameter 2.6 cm DOPPLER AV Peak Velocity 165.5 cm/s AV Peak Gradient 11.0 mmHg AV Mean Gradient 6.0 mmHg AV Velocity Time Integral 34.0 cm LVOT Peak Velocity 117.0 cm/s LVOT Peak Gradient 5.5 mmHg LVOT Velocity Time Integral 25.3 cm AV Area Cont Eq vti 1.5 cm? AV Area Cont Eq pk 1.4 cm? MV Area PHT 3.4 cm? Mitral E Point Velocity 103.0 cm/s Mitral A Point Velocity 91.1 cm/s Mitral E to A Ratio 1.1 LV E' Lateral Velocity 13.6 cm/s Mitral E to LV E' Lateral Ratio 7.6 LV E' Septal Velocity 9.4 cm/s Mitral E to LV E' Septal Ratio 11.0 TR Peak Velocity 213.0 cm/s TR Peak Gradient 18.1 mmHg PV Peak Velocity 118.0 cm/s PV Peak Gradient 5.6 mmHg RVOT Peak Velocity 65.8 cm/s FINDINGS Left Ventricle Normal left ventricular size, wall thickness, systolic function with no obvious regional wall motion abnormalities. There is grade I diastolic dysfunction of the left ventricle (impaired relaxation pattern). The left ventricular ejection fraction is normal, estimated at 55-60%. Right Ventricle The right ventricle is normal in size and systolic function. The estimated right ventricular systolic pressure, 21 mmHg. Left Atrium The left atrium is normal by two-dimensional, color flow and Doppler imaging with no structural abnormalities, no thrombus formation present. Right Atrium The right atrium is normal by two-dimensional imaging, color flow and Doppler imaging with no structural abnormalities, no thrombus formation present. Atrial Septum The interatrial septum appears normal with no evidence of a shunt. Aorta The aorta is normal by two-dimensional, color flow and Doppler interrogation. Mitral Valve Trace to mild mitral regurgitation. Mild mitral annular calcification. Aortic Valve Aortic valve sclerosis. Tricuspid Valve There is mild tricuspid valve regurgitation. Pulmonic Valve Trivial pulmonic valve regurgitation. Vessels The pulmonary artery appears normal. The inferior vena cava pulmonary and hepatic veins appear normal. Pericardium The pericardium is normal by two-dimensional imaging. There is no significant pericardial effusion. CONCLUSIONS Indication: Malignant neoplasm of upper-inner quadrant of right female b Normal LV size and function with normal EF of around 60 to 65%. RV size and function are normal. Estimated RVSP is normal Trace to mild MR and mild TR. No evidence of any pericardial effusion Geovani Marte (Electronically Signed) Final Date: 30 August 2024 18:57
== END | disposition home or self-care (01) ==
LOC: SDIM 14:41
PROVIDERS: PCP Internal Medicine; Referring Provider Internal Medicine Hematology & Oncology; Visit Provider Internal Medicine Hematology & Oncology
DX: I08.1 Rheumatic disorders of both mitral and tricuspid valves (principal); C50.211 Malignant neoplasm of upper-inner quadrant of right female breast
CPT/HCPCS: 93306

== ENCOUNTER → 2024-11-04 | Outpatient (CLI) | payer MEDICAID, SELFPAY ==
--- NOTE | 2024-11-04 13:16 | XR_ITS ---
Examination: Diagnostic digital mammography, bilateral Computer aided detection 3-D breast Tomosynthesis, bilateral Date and time of exam: November 04, 2024 1326 hours INDICATIONS: Patient states right breast lump 2 weeks, diagnosis breast cancer, 6 mm nodule upper outer left breast on mammogram January 20, 2024 Technique: Nonmagnified MLO, CC views of the breasts to been obtained, reconstructed from 3-D Tomosynthesis images. R2 computer aided detection program utilized for evaluation of suspicious masses and/or abnormal calcifications. 3-D Tomosynthesis images obtained. Findings: The breasts are heterogeneously dense, which may obscure small masses Extensive architectural distortion outer right breast with skin retraction Spiculated 12 mm nodular density adjacent to the palpable marker site central right breast on CC view which is probably nipple level on the MLO view Impression: BI-RADS Category 0: Incomplete: Need additional imaging evaluation Spiculated 12 mm nodular density adjacent to the palpable marker site central right breast on the CC view Recommend bilateral breast sonography follow-up.
== END | disposition home or self-care (01) ==
LOC: CDIM 13:11
PROVIDERS: Referring Provider Internal Medicine; Visit Provider Internal Medicine
DX: R92.8 Other abnormal and inconclusive findings on diagnostic imaging of breast (principal); N63.10 Unspecified lump in the right breast, unspecified quadrant
CPT/HCPCS: 77062; 77066; G0279

== ENCOUNTER 2024-12-16 11:05 | Outpatient (AMB) | payer MEDICAID, SELFPAY ==
--- NOTE | 2024-12-16 11:51 | GYNCLNT_ITS ---
Vital Signs 12/16/24 12:00 Height 1.57 m Height Method Stated Weight 80.739 kg Weight Measurement Method Standing Scale BMI 32.5 BP 139/90 H Blood Pressure Source Automatic Cuff Blood Pressure Location Left Upper Arm Position Sitting Respiration 16 Pulse 80 Pulse Source Monitor Temp 98.2 F Temp Source Oral Pulse Oximetry (%) 99 Oxygen Delivery Method Room Air Allergies/Home Meds Allergies & Medications Allergies No Known Allergies Allergy (Verified 12/16/24 12:01) Medication Reconciliation atorvastatin 10 mg tablet (Lipitor) 10 mg PO QDAY 04/22/24 [History Confirmed 12/16/24] dextroamphetamine-amphetamine 20 mg tablet (Adderall) 20 mg PO QDAY 04/22/24 [History Confirmed 12/16/24] fluoxetine 40 mg capsule (Prozac) 40 mg PO QDAY 04/22/24 [History Confirmed 12/16/24] losartan 25 mg tablet 25 mg PO DAILY 04/22/24 [History Confirmed 12/16/24] hydrocodone 10 mg-acetaminophen 325 mg tablet 1 tab PO Q6H PRN pain #28 tabs 04/25/24 [Rx Confirmed 12/16/24] Intake Visit Data Collection New Patient or Established: Established Patient (seen at [facility] within 3 years) Reason for Visit:: BILATERAL OOPHORECTOMIES Seen by Clinical Staff ONLY (RN/MA): No Clinical Nurse Occupational Medicine Required: No Do You Feel Safe at Home: Yes Authorities Contacted: N/A PCP or OBGYN visit in last 3 months: Yes Hx Now: No Are you currently on any form of Control: No Last menstrual period: 11/28/24 Pain Present Currently: No Pain Scale Used: [place]/Numerical Pain scale:: 0 Smoking Status Smoking Status: Current every day smoker Cessation Counseling Provided: NGHIA was advised that quitting smoking is the single most important factor to protect the health of themselves and their family. Discussed the benefits of quitting smoking with patient. Encouraged patient to quit smoking and provided Cessation assistance materials and resources. 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 Past Medical History: No Hx Neurological Disorders, No Hx Hypothyroidism, No Hx Hyperthyroidism, Yes Hx Breast Cancer (right), Yes Hx Cardiac Disorders, Yes Hx Hypertension, Yes Hx Cancer, No Hx Blood Disorders, No Hx Anemia, Yes Hx Gastrointestinal Disorders, No Hx Renal Disease, No Hx Deep Vein Thrombosis, No Hx Diabetes Mellitus Type 1, No Hx Diabetes Mellitus Type 2, Yes Hx Tubal Ligation, No Hx Hysterectomy and No Psychiatric Problems Questionnaires Covid-19 Vaccine Questionnaire Has patient been vacinated for Covid-19 Have you been vacinated for Covid-19: Yes PHQ-9 PHQ-2 Over the last 2 weeks, how often have you been bothered by any of the following problems? 1. Little interest or pleasure in doing things: not at all 2. Feeling down, depressed, or hopeless: not at all Total score: 0 PHQ-9 3. Trouble falling or staying asleep, or sleeping too much: Not at all 4. Feeling tired or having little energy: Not at all 5. Poor appetite or overeating: Not at all 6. Feeling bad about yourself - or that you are a failure or have let yourself or your family down: Not at all 7. Trouble concentrating on things, such as reading the newspaper or watching television: Not at all 8. Moving or speaking so slowly that other people could have noticed? - Or the opposite - being so fidgety or restless that you have been moving around a lot more than usual: not at all 9. Thoughts that you would be better off or of hurting yourself in some way: Not at all Total score: 0 Source: Developed by Drs. Aly Stephenson, Jackie Oshea, Meir Ayala and colleagues, with an educational neisha from [employer]. Depression screen completed yes Social History Living Situation History Lives With: Family Housing: House Tobacco History Smoking Status: Current every day smoker Second Hand Smoke Exposure: Yes Alcohol History Alcohol Intake: Current Alcohol Intake Frequency: holidays/special occasions only Substance Use History Substance Use: SMOKES MARIJUANA Domestic Abuse History Do You Feel Safe at Home: Yes History of Present Illness HPI Narrative Nghia Sutherland is a 39-year-old presenting on referral from her oncologist for prophylactic oophorectomy due to stage 3 ER-positive breast cancer. The patient was diagnosed with stage 3 T3-N1 breast cancer, specifically a malignant neoplasm of the lower outer quadrant of the right breast, which is estrogen receptor positive. She underwent a partial mastectomy on April 25, 2024, followed by a re-excision later that month due to positive margins. Nghia has been prescribed tamoxifen for her breast cancer treatment. She is now seeking a prophylactic oophorectomy to reduce her exposure to estrogen, given her ER-positive breast cancer status. A recent breast cancer genetic panel was negative for several genes including BRCA1, BRCA2, and others. The patient appears to be adhering to her current treatment regimen and is actively participating in her cancer care by seeking this prophylactic procedure. Medical History: - Stage 3 T3-N1 breast cancer, ER-positive - Depression Surgical History: - Partial mastectomy on April 25, 2024, for stage 3 T3-N1 breast cancer - Re-excision in April 2024 for positive margins - Two previous C-sections - One previous vaginal delivery Obstetric History: - GPAL: A0 L3 - History of 2 C-sections - History of 1 vaginal delivery Medications: - Tamoxifen - Her [facility] breast cancer panel: Negative for BRCA1, BRCA2, BRD1, P10, TP53, CDH1, SANDRA, NBN, NF1, BR1P1, CHAK2, PLB2, RD50, STK11, MUTYH, MRE11A, RAD51C, RAD51D, [id number] Exam General General Appearance: alert, in no apparent distress and healthy appearing Head Head exam: atraumatic Neck Neck exam: Present normal inspection and trachea midline Chest Chest inspection: Present normal inspection and symmetric chest wall rise External exam: Present normal external exam; Absent tenderness Neuro Neurological exam: Present oriented X3 Psych Psychiatric exam: Present normal affect and normal mood Office Procedures OB Clinic LOC & Office Proc's Nursing/Assessment Patient Status: Established Patient OB Clinic Nursing Assessment: Medication Reconciliation, Update PMH in EMR and Vital Signs OB Clinic Coordination of Care: Complex Care and Chronic Disease 1-5, Consent,records obtained, informed consent, Education Simp Pt/Fam, 1 Ins Authorization, Lab and Imaging orders, Results/Orders obtained and Staff clarify orders Established Patient Charge Established Patient Point Assignment: 120 Established Patient Point Charge: EP Level 4 (120-155) Assessment & Plan Diagnosis / Problem List (1) Breast cancer, right breast: Status: Acute (2) Malignant neoplasm of upper-inner quadrant of right female breast: Status: Acute Plan Stage 3 ER-positive breast cancer Assessment: Patient has stage 3 T3-N1 breast cancer, specifically malignant neoplasm of lower outer quadrant of right breast, estrogen receptor positive. She underwent partial mastectomy on April 25, 2024, followed by re-excision in the same month due to positive margins. Breast cancer panel is pending, but [facility] breast cancer panel was negative for multiple genes including BRCA1, BRCA2, and others. Given the ER-positive status of the tumor, prophylactic oophorectomy is being considered to reduce estrogen exposure. Plan: - Submit urgent authorization for laparoscopic bilateral oophorectomy - Continue tamoxifen as prescribed by oncologist - Perform pre-operative evaluation and counseling at next visit - Annual transvaginal ultrasound to monitor endometrial stripe while on tamoxifen - Oncologist to reassess need for tamoxifen post-oophorectomy Surgical planning for prophylactic oophorectomy Assessment: Patient is a suitable candidate for laparoscopic bilateral oophorec tico as a prophylactic measure for her ER-positive breast cancer. The procedure will involve placement of a camera and two instruments through small incisions, with use of a vessel sealing device (Ligasure) for tissue separation and hemostasis. This approach allows for minimal invasiveness and outpatient management. Plan: - Perform laparoscopic bilateral oophorectomy - Outpatient procedure with anticipated discharge 2 hours post-op - Schedule follow-up appointment to review surgical details and post-operative care
[2024-12-16 12:00] VITALS: BP 139/90; PULSE 80; RESP 16; TEMP 36.8; O2SAT 99; BMI 32.5
== END 2024-12-16 12:10 | disposition home or self-care (01) ==
LOC: HODSOBC 11:05
PROVIDERS: Supervising Provider Obstetrics & Gynecology; Visit Provider Obstetrics & Gynecology
DX: C50.211 Malignant neoplasm of upper-inner quadrant of right female breast (principal); Z17.0 Estrogen receptor positive status [ER+]; Z90.11 Acquired absence of right breast and nipple; F17.210 Nicotine dependence, cigarettes, uncomplicated; Z71.6 Tobacco abuse counseling; I10 Essential (primary) hypertension; Z79.899 Other long term (current) drug therapy
CPT/HCPCS: 99214; G0463

== ENCOUNTER → 2024-12-22 | Outpatient (CLI) | payer MEDICAID, SELFPAY ==
--- NOTE | 2024-12-22 10:32 | XR_ITS ---
Examination: Breast ultrasound complete, bilateral Date and time of exam: December 22, 2024 1050 hours Comparison March 14, 2024 INDICATIONS: Mammogram November 04, 2024 spiculated 11 mm nodular density adjacent to the palpable marker site central right breast on the CC view, patient states palpable lump right breast 12:00 position one month, personal history right breast cancer with partial mastectomy Technique: Real-time grayscale ultrasonographic imaging bilateral breasts, including all 4 quadrants as well as nipple retroareolar and axillary regions. Findings: 12:00 mass indistinct margins 16 x 16 mm at the area of lumpectomy 9:00 nodule indistinct margins 4.4 x 4.0 cm 11:00 nodule spiculated margins 6 x 6 mm Sonographic images left breast 12:00 nodule 10 x 8 mm IMPRESSION: 3 suspicious masses in the right breast, recommend ultrasound-guided biopsy of all 3 masses to exclude breast carcinoma
== END | disposition home or self-care (01) ==
LOC: CDIM 09:51
PROVIDERS: PCP Internal Medicine
DX: N63.25 Unspecified lump in the left breast, overlapping quadrants (principal); N63.15 Unspecified lump in the right breast, overlapping quadrants; N63.11 Unspecified lump in the right breast, upper outer quadrant; C50.919 Malignant neoplasm of unspecified site of unspecified female breast
CPT/HCPCS: 76641

== ENCOUNTER 2024-12-29 08:07 | Outpatient (RCR) | payer MEDICAID, SELFPAY ==
--- NOTE | 2024-12-29 09:36 | CTCCONSULT_ITS ---
[facility] [place], [place] [address] Consultation Note Date: 12/29/2024 MR#: [id number] Name: NGHIA PELLETIER : 1985 Dx: C50.211 Malignant neoplasm of upper-inner quadrant of right female breast Referring physician. Graham Metzger MD Reason for consultation. Patient with stage III receptor positive breast cancer History of Present Illness: Patient a 39-year-old lady who after feeling a palpable mass right breast size about golf ball, biopsy performed 04/13/[address] Natalia Merino performed right breast partial mastectomy April 25 invasive lobular carcinoma pT3N1a invasive carcinoma 7 x 5 x 4 cm with 2 of 16 nodes positive for mets. ER/IN positive HER2/kaylan negative. Subsequent surgery 05/05/2024 to get negative margins. Saw Dr. Vidal who ordered PET scan and MRI of brain both negative. Was offered chemo but she went for second opinion in [place] with also cited need for chemo. Patient is seeking still another opinion at [facility] in [place] soon. Was told that her BRCA gene testing was negative. Patient saw FANCY STITCHER Dr. Dr. Guy who reportedly may perform prophylactic oophorectomy to reduce estrogen exposure. . Past Medical History: Hypertension bipolar disorder tubal ligation jaw surgery at 1 years from dog bite. Meds. 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 Assessment: 1. pT3N1a right breast CA invasive lobular status post partial mastectomy and right axillary node dissection. 2. Declined chemo suggestion of 2 medical oncologist apparently will get a third opinion and is see care soon. 3. Even as a radiation oncologist I believe the patient needs chemo soon, to be followed by eventual radiation therapy as only partial mastectomy performed. 4. Patient scheduled to see still another medical oncologist seek care in [place]. 5. I gave patient follow-up for 3 months here. Electronically signed by: Herbert Ha MD, SANDYR 12/29/2024 9:34 AM
== END 2025-01-08 23:59 | disposition home or self-care (01) ==
LOC: SCTC 08:07
PROVIDERS: PCP Internal Medicine; Referring Provider Internal Medicine Hematology & Oncology; Visit Provider Radiology Therapeutic Radiology
DX: C50.811 Malignant neoplasm of overlapping sites of right female breast (principal); Z17.0 Estrogen receptor positive status [ER+]; Z17.21 Progesterone receptor positive status; Z17.32 Human epidermal growth factor receptor 2 negative status; Z90.11 Acquired absence of right breast and nipple; I10 Essential (primary) hypertension
CPT/HCPCS: 99212; G0463

== ENCOUNTER → 2025-01-11 | Outpatient (CLI) | payer MEDICAID, SELFPAY ==
--- NOTE | 2025-01-11 10:30 | ECHO_ITS ---
Transthoracic Echo Report Ht (in): 62 Wt (lb): 169 Exam Location: Echo Lab Status: Preadmit Lining Machine Operator: Eileen Savage Indications: Procedure Performed: BP: 176 / 136 HR: 87 MEASUREMENTS (Male / Female) Normal Values 2D ECHO LV Diastolic Diameter PLAX 4.5 cm 4.2 - 5.9 / 3.9 - 5.3 cm LV Systolic Diameter PLAX 2.8 cm IVS Diastolic Thickness 0.8 cm 0.6 - 1.0 / 0.6 - 0.9 cm LVPW Diastolic Thickness 1.0 cm 0.6 - 1.0 / 0.6 - 0.9 cm LV Relative Wall Thickness 0.4 LVOT Diameter 1.9 cm LA Volume Index 17.8 cm?/m? 16 - 28 cm?/m? Ascending Aorta Diameter 2.7 cm M-MODE AV Cusp Separation MM 1.3 cm DOPPLER MV Area PHT 4.2 cm? Mitral E Point Velocity 102.0 cm/s Mitral A Point Velocity 79.1 cm/s Mitral E to A Ratio 1.3 LV E' Lateral Velocity 13.8 cm/s Mitral E to LV E' Lateral Ratio 7.4 LV E' Septal Velocity 10.0 cm/s Mitral E to LV E' Septal Ratio 10.2 TR Peak Velocity 231.0 cm/s TR Peak Gradient 21.3 mmHg PV Peak Velocity 103.0 cm/s PV Peak Gradient 4.2 mmHg FINDINGS Left Ventricle Normal left ventricular size, wall thickness, systolic function with no obvious regional wall motion abnormalities. Normal left ventricular diastolic filling pattern for age. The ejection fraction is visually estimated at 60-65 %. Right Ventricle The right ventricle is normal in size and systolic function. Left Atrium The left atrium is normal by two-dimensional, color flow and Doppler imaging with no structural abnormalities, no thrombus formation present. Right Atrium The right atrium is normal by two-dimensional imaging, color flow and Doppler imaging with no structural abnormalities, no thrombus formation present. Atrial Septum The interatrial septum appears normal with no evidence of a shunt. Aorta The aorta is normal by two-dimensional, color flow and Doppler interrogation. Mitral Valve The mitral valve is normal by two-dimensional, color flow and Doppler interrogation. Trace to mild mitral regurgitation. Aortic Valve The aortic valve is trileaflet and normal by two-dimensional, color flow and Doppler interrogation. There is no significant aortic valve regurgitation. Tricuspid Valve The tricuspid valve is normal by two-dimensional, color flow and Doppler interrogation. There is mild tricuspid valve regurgitation. Pulmonic Valve The pulmonic valve is not well visualized. There is no significant pulmonic valve regurgitation. Vessels The pulmonary artery appears normal. The inferior vena cava pulmonary and hepatic veins appear normal. Pericardium The pericardium is normal by two-dimensional imaging. There is no significant pericardial effusion. CONCLUSIONS Indication: Malignant neoplasm of upper-inner quadrant of right female breast Normal left ventricular size and function. Approximate ejection fraction is 60-65% Normal RV size and function. Estimated RVSP normal. Trace mitral and trace tricuspid regurgitation noted. No significant change since the prior study of 08/30/24 Geovani Marte (Electronically Signed) Final Date: 11 January 2025 12:25
== END | disposition home or self-care (01) ==
PROVIDERS: PCP Internal Medicine; Referring Provider Internal Medicine Hematology & Oncology; Visit Provider Internal Medicine Hematology & Oncology
DX: I08.1 Rheumatic disorders of both mitral and tricuspid valves (principal); C50.211 Malignant neoplasm of upper-inner quadrant of right female breast
CPT/HCPCS: 93306